=== PATIENT | female | born 1970 | race African-American/Black ===

== ENCOUNTER 2021-03-29 20:54 | Emergency (ER) | payer SELFPAY ==
[~2021-03-29] VITALS: Ht 162.6 cm; Wt 65.8 kg
[2021-03-29 21:00] VITALS: BP 112/68
== END 2021-03-29 23:14 | disposition left against medical advice (07) ==
LOC: EDBD 20:54 → ER 21:03
DX: F10.920 Alcohol use, unspecified with intoxication, uncomplicated (principal); Y90.9 Presence of alcohol in blood, level not specified; Z53.29 Procedure and treatment not carried out because of patient's decision for other reasons

== ENCOUNTER 2021-03-30 07:40 | Emergency (ER) | payer OTHER ==
[~2021-03-30] VITALS: Ht 175.3 cm; Wt 70.3 kg
[2021-03-30 09:06] LABS: Amphetamine Screen, Urine NEGATIVE (NEGATIVE); Barbiturate Scree,Urine NEGATIVE (NEGATIVE); Benzodiazephine Screen, Urine NEGATIVE (NEGATIVE); Cannabinoid Screen, Urine POSITIVE (NEGATIVE); Cocaine Screen, Urine NEGATIVE (NEGATIVE); Opiate Scree,Urine NEGATIVE (NEGATIVE); Phencyclidine Screen, Urine NEGATIVE (NEGATIVE)
[2021-03-30 10:18] LABS: Basophils # (auto) 0.1 10 ^3/uL (0-0.2); Basophils % (auto) 0.9 % (0.0-2.0); Eosinophils # (auto) 0.1 10 ^3/uL (0-0.8); Eosinophils % (auto) 1.2 % (0.0-7.0); Hematocrit 43.4 % (36.0-46.0); Hemoglobin 15.1 g/dL (12.2-16.2); Lymphocytes # (auto) 2.2 10 ^3/uL (0.4-5.4); Lymphocytes % (auto) 29.5 % (10.0-50.0); Mean Corpuscular Hemoglobin 33.3 pg (28.0-32.0); Mean Corpuscular Hgb Conc. 34.7 g/dL (32.0-36.0); Mean Corpuscular Volume 96.1 fL (80.0-100.0); Monocytes # (auto) 0.6 10 ^3/uL (0-1.3); Monocytes % (auto) 8.4 % (0.0-12.0); Neutrophils # (auto) 4.4 10 ^3/uL (1.6-8.6); Nucleated Red Blood Cells % 0.1 %; Platelet Count (auto) 341 10^3/uL (140-450); Red Blood Cells 4.52 10^6/uL (4.0-5.20); White Blood Cell 7.4 10^3/uL (4.4-10.8)
[2021-03-30 10:49] LABS: Albumin 3.6 g/dL (3.4-5.0); Calcium 8.7 mg/dL (8.5-10.1)
[2021-03-30 10:52] LABS: BUN/Creatinine Ratio 16.7; Bilirubin, Total 0.2 mg/dL (0.2-1.0); Total Protein 8.5 g/dL (6.4-8.2)
[2021-03-30 12:02] LABS: Urine Bacteria FEW /hpf (None Seen); Urine Blood Negative /uL (Negative); Urine Mucus FEW (None Seen); Urine WBC 14 /hpf (0 - 5)
[2021-03-30 12:11] LABS: Salicylate < 1.7 mg/dL (2.8-20.0)
[2021-03-30 12:12] LABS: Acetaminophen < 2.0 ug/mL (10-30)
[2021-03-30] MEDS ORDERED: cefTRIAXone 1GM/50ML D5W 50 ML IV ONE (12:30)
[2021-03-30] MEDS ORDERED: QUEtiapine FUMARATE 25 MG TAB PO ONE (12:30)
[2021-03-30] MEDS ORDERED: LORazepam 0.5 MG TAB PO ONE (12:30)
[2021-03-30] MEDS ORDERED: MIRTAZAPINE 30 MG TAB PO ONE (13:15)
[2021-03-30] MEDS ORDERED: FLUoxetine HCL 20 MG CAP PO ONE (13:15)
[2021-03-30] MEDS ORDERED: ALPRAZolam 0.5 MG TAB PO ONE (13:15)
[2021-03-30] MEDS ORDERED: OLANZapine 5 MG TAB PO ONE (17:45)
[2021-03-31] MEDS ORDERED: LORazepam 0.5 MG TAB PO PRN (12:30)
[2021-03-31] MEDS ORDERED: OLANZapine 5 MG TAB PO PRN (12:30)
[2021-03-31] MEDS: FLUoxetine HCL 20 MG CAP PO SCH (12:55)
[2021-03-31] MEDS: THIAMINE HCL 100 MG TAB PO SCH (12:55)
[2021-03-31] MEDS: ALPRAZolam 0.25 MG TAB PO PRN (13:25)
[2021-03-31] MEDS ORDERED: OLANZapine 5 MG TAB PO ONE (22:00)
[2021-03-31] MEDS: MIRTAZAPINE 30 MG TAB PO SCH (22:46)
[2021-04-01] MEDS: ALPRAZolam 0.25 MG TAB PO PRN ×2 (03:48→20:53)
[2021-04-01] MEDS: NITROFURANTOIN 100 mg CAP PO SCH (10:32)
[2021-04-01] MEDS: FLUoxetine HCL 20 MG CAP PO SCH (10:38)
[2021-04-01] MEDS: THIAMINE HCL 100 MG TAB PO SCH (10:38)
[2021-04-02] MEDS: NITROFURANTOIN 100 mg CAP PO SCH (01:39)
[2021-04-02] MEDS: MIRTAZAPINE 30 MG TAB PO SCH (01:39)
[2021-04-02 06:58] VITALS: BP 139/85
== END 2021-04-02 07:20 | disposition home or self-care (01) ==
LOC: ER 07:40
DX: R45.851 Suicidal ideations (principal); F32.9 Major depressive disorder, single episode, unspecified; F10.10 Alcohol abuse, uncomplicated; R07.89 Other chest pain; N39.0 Urinary tract infection, site not specified; Z59.0 Homelessness; Z20.822 Contact with and (suspected) exposure to COVID-19; Z32.02 Encounter for pregnancy test, result negative
CPT/HCPCS: 36415; 71046; 80053; 80307; 80320; 80329; 81001; 81025; 85025; 85049; 87426; 93005; 96365; 99285; J0696